=== PATIENT | male | born 1960 | race Hispanic/Latino ===

== ENCOUNTER 2016-07-17 08:27 | Outpatient (CLI) | payer OTHER ==
[2016-07-17 09:38] LABS: Blood Urea Nitrogen 7 mg/dL (9-20)
[2016-07-17] MEDS ORDERED: NACL ONE ×2 (11:17→11:23)
--- NOTE | 2016-07-17 12:49 | Cat Scan Report ---
CT SCAN OF THE ABDOMEN AND PELVIS WITH CONTRAST: HISTORY: Abdominal pain and. TECHNIQUE: Helical CT in 1.25mm intervals following IV contrast. Sagittal and coronal reconstructions. FINDINGS: The liver is normal in size and is without focal defect. 2 large partially calcified gallstones measure up to 2 cm. No biliary dilatation is appreciated. The spleen and pancreas demonstrate a normal size and attenuation with no evidence of abnormal mass. A 3.2 x 3.0 x 3.0 cm right renal mass is identified near mid pole. This mass appears to enhance less than the normal adjacent renal parenchyma. No calcifications. Small areas of cystic change are suspected within this mass. The left kidney is unremarkable. The adrenal glands are normal. There is no intestinal obstruction or ascites. Normal appendix. The abdominal aorta is normal. No abnormalities are identified within the retroperitoneum or mesentery. There is no evidence of peritoneal air or fluid. There is no evidence of any abnormal masses or fluid collections within the pelvis. No adenopathy is identified. The bladder is normal. IMPRESSION: Approximate 3 cm right renal mass. A neoplastic process cannot be excluded. Consultation with urology is recommended. Comparison with previous exams would be helpful if they are available. No acute inflammatory process is appreciated. Normal appendix. Cholelithiasis.
== END 2016-07-17 08:28 | disposition home or self-care (01) ==
LOC: CT 08:27
PROVIDERS: ATTEND Internal Medicine
DX: K80.20 Calculus of gallbladder without cholecystitis without obstruction (principal); N28.89 Other specified disorders of kidney and ureter; R19.7 Diarrhea, unspecified
CPT/HCPCS: 36415; 74177; 82565; 84520; Q9967